=== PATIENT | male | born 1975 | race Hispanic/Latino ===

== ENCOUNTER 2020-11-24 03:38 | Emergency (ER) | payer OTHER ==
[2020-11-24] MEDS ORDERED: ONDANSETRON HCL 4 MG/2 ML VIAL ONE (03:42)
[2020-11-24] MEDS ORDERED: NITROGLYCERIN 1GM/1 INCH PACKET TD ONE (03:42)
[2020-11-24] MEDS ORDERED: ASPIRIN 325 MG TABLET ONE (03:42)
[2020-11-24] MEDS ORDERED: PANTOPRAZOLE 40 MG/VIAL ONE (03:42)
[2020-11-24] MEDS ORDERED: FAMOTIDINE/PF 20 MG/2 ML VIAL IV ONE (03:43)
[2020-11-24 04:03] LABS: BASOPHILS % (AUTO) 0.7 % (0.0-5.0); EOSINOPHILS % (AUTO) 1.9 % (0.0-8.0); HEMATOCRIT 48.5 % (42-54); LYMPHOCYTES % (AUTO) 26.2 % (21.0-51.0); MEAN CORPUSCULAR VOLUME 84.9 fL (79-99); MONOCYTES % (AUTO) 8.8 % (3.0-13.0); NEUTROPHILS % (AUTO) 62.1 % (40.0-77.0); PLATELET COUNT (AUTO) 381 K/uL (130-400); RED BLOOD CELL COUNT(AUTO) 5.71 MIL/uL (4.50-6.20); RED CELL DISTRIBUTION WIDTH 14.8 % (11.0-15.5); WHITE BLOOD COUNT (AUTO) 10.8 K/uL (4.8-10.8)
[2020-11-24] MEDS ORDERED: LIDOCAINE HCL 2% VISCOUS 15 ML UDCUP ONE (04:03)
[2020-11-24] MEDS ORDERED: MAG HYDROX/AL HYDROX/SIMETH ES 30 ML SUSP UDCUP ONE (04:03)
[2020-11-24] MEDS ORDERED: METOCLOPRAMIDE 10 MG/2 ML VIAL ONE (04:04)
[2020-11-24 04:10] LABS: POTASSIUM 4.3 mmol/L (3.5-5.1)
[2020-11-24 04:24] LABS: BILIRUBIN,TOTAL 0.4 mg/dL (0.2-1.0); CREATININE 1.3 mg/dL (0.5-1.5); TOTAL PROTEIN, SERUM 8.1 g/dL (6.0-8.3)
[2020-11-24] MEDS ORDERED: DiphenhydrAMINE HCL 50 MG/ML VIAL ONE (05:00)
[2020-11-24] MEDS ORDERED: KETOROLAC TROMETHAMINE 30MG/ML ONE (05:17)
== END 2020-11-24 05:36 | disposition home or self-care (01) ==
LOC: EDH 03:38
DX: K29.00 Acute gastritis without bleeding (principal); E86.0 Dehydration; I10 Essential (primary) hypertension
CPT/HCPCS: 36415; 71045; 80053; 83690; 84484; 85025; 93005; 96361; 96374; 96375; 99285; C9113; J1200; J1885; J2405; J2765; J3490

== ENCOUNTER 2021-07-11 15:39 | Emergency (ER) | payer OTHER ==
[~2021-07-11] VITALS: Ht 172.7 cm; Wt 112.5 kg
[2021-07-11 15:48] VITALS: BP 174/107
[2021-07-11] MEDS ORDERED: OCTYL 2-CYANOACRYLATE 1 EACH TP ONE (16:25)
== END 2021-07-11 16:50 | disposition home or self-care (01) ==
LOC: EDH 15:39
DX: S31.31XA Laceration without foreign body of scrotum and testes, initial encounter (principal); W27.8XXA Contact with other nonpowered hand tool, initial encounter; Y93.89 Activity, other specified; Y92.009 Unspecified place in unspecified non-institutional (private) residence as the place of occurrence of the external cause; Y99.8 Other external cause status
CPT/HCPCS: 12001